=== PATIENT | female | born 1985 | race Caucasian/White ===

== ENCOUNTER 2023-02-26 09:16 | Outpatient (CLI) | payer MEDICAID, SELFPAY ==
--- NOTE | 2023-02-26 09:15 | CRLHL7_ITS ---
For Patients: As a result of the Century Cures Act, medical imaging exams and procedure reports are released immediately into your electronic medical record. You may view this report before your referring provider. If you have questions, please contact your health care provider. Technique: Double-contrast esophagram performed after the uneventful administration of effervescent crystals and thick barium followed by thin barium. Fluoroscopy time 35 seconds. Indication: Regurgitation of food Comparison: None. Findings: Esophagus: Normal morphology and motility. No stricture or mass. Gastroesophageal reflux: None. Gastroesophageal junction: Small sliding hernia. Impression: Small sliding hiatal hernia. Remainder normal. Dictated by Wesley Knott MD @ 02/26/2023 10:34:01 AM (Electronically Signed)
== END 2023-02-26 09:17 | disposition home or self-care (01) ==
PROVIDERS: Visit Provider Internal Medicine Gastroenterology
DX: R07.0 Pain in throat (principal); R11.10 Vomiting, unspecified; R13.10 Dysphagia, unspecified; R14.0 Abdominal distension (gaseous); K44.9 Diaphragmatic hernia without obstruction or gangrene
CPT/HCPCS: 74221